=== PATIENT | female | born 1980 | race Caucasian/White ===

== ENCOUNTER 2021-05-01 12:10 | Emergency (ER) | payer MEDICAID ==
[~2021-05-01] VITALS: Ht 165.1 cm; Wt 82.6 kg
[2021-05-01 12:18] VITALS: BP 135/79
[2021-05-01] MEDS ORDERED: KETOROLAC 30 MG/ML VIAL IM ONE (13:00)
[2021-05-01 13:34] LABS: BASOPHILS # (AUTO) 0.1 K/uL (0.00-0.22); BASOPHILS % (AUTO) 0.8 % (0.0-2.0); EOSINOPHILS # (AUTO) 0.1 K/uL (0-0.4); EOSINOPHILS % (AUTO) 1.6 % (0.0-4.0); HEMATOCRIT 36.2 % (36-48); HEMOGLOBIN 12.5 g/dL (12.0-16.0); LYMPHOCYTES # (AUTO) 2.4 K/uL (2.5-16.5); LYMPHOCYTES % (AUTO) 30.2 % (20.5-51.1); MEAN CORPUSCULAR HEMOGLOBIN 32 pg (27-31); MEAN CORPUSCULAR HGB CONC 34 g/dL (33-37); MEAN CORPUSCULAR VOLUME 91.5 fL (80-94); MONOCYTES # (AUTO) 0.6 K/uL (0.8-1.0); MONOCYTES % (AUTO) 7.6 % (1.7-9.3); NEUTROPHILS # (AUTO) 4.7 K/uL (1.8-7.7); NEUTROPHILS % (AUTO) 59.8 % (42.2-75.2); PLATELET COUNT (AUTO) 184 K/uL (140-450); RED BLOOD CELL COUNT(AUTO) 3.96 MIL/uL (4.20-5.40); RED CELL DISTRIBUTION WIDTH 13.1 % (11.6-13.7); WHITE BLOOD COUNT (AUTO) 7.8 K/uL (4.8-10.8)
[2021-05-01 13:34] LABS: APPEARANCE,URINE CLEAR (CLEAR); BILIRUBIN,URINE NEGATIVE (NEGATIVE); BLOOD, URINE 3+ (NEGATIVE); COLOR,URINE YELLOW (YELLOW); LEUKOCYTE ESTERASE ,URINE NEGATIVE (NEGATIVE); NITRITE, URINE NEGATIVE (NEGATIVE); PH,URINE 5.5 (5.0-9.0); UGLUCOSE NEGATIVE (NEGATIVE)
[2021-05-01 13:43] LABS: CARBON DIOXIDE 25.7 mmol/L (21-32); CREATININE 0.7 mg/dL (0.6-1.3); POTASSIUM 3.7 mmol/L (3.5-5.1)
[2021-05-01 13:49] LABS: ALBUMIN 3.7 g/dL (3.4-5.0); TOTAL BILIRUBIN 0.3 mg/dL (0.0-1.0)
[2021-05-01 13:53] LABS: RBC,URINE 11-20 (MOD) /HPF (0-5); WBC,URINE 0-5 /HPF (0-5)
[2021-05-01] MEDS ORDERED: ONDA-24 PO (14:22)
[2021-05-01] MEDS ORDERED: ACET-8386 PO (14:22)
[2021-05-01 15:02] VITALS: BP 117/68
== END 2021-05-01 15:00 | disposition home or self-care (01) ==
LOC: MED 12:10
DX: R19.7 Diarrhea, unspecified (principal); E86.0 Dehydration; R10.32 Left lower quadrant pain
CPT/HCPCS: 36415; 74176; 80053; 81001; 81025; 83690; 85025; 96372; 99284; J1885

== ENCOUNTER 2022-07-13 15:55 | Emergency (ER) | payer MEDICAID ==
[~2022-07-13] VITALS: Ht 162.6 cm; Wt 81.6 kg
[~2022-07-13 15:55] MED LIST: ACET-8386 PO; ONDA-188 PO
--- NOTE | 2022-07-13 16:25 | NUR ---
PT AMBULATED TO BED 02.
[2022-07-13 16:30] VITALS: BP 142/86
--- NOTE | 2022-07-13 16:52 | NUR ---
C/O LEFT SIDED ABDOMINAL PAIN THAT RAD TO BACK WITH D/N X 4 DAYS. DENIES VOMITING & PAIN DURING URINATION. TEMP 98.6 PMH: DENIES
[2022-07-13] MEDS ORDERED: ONDANSETRON 4 MG/2 ML VIAL IVP ONE (18:40)
[2022-07-13] MEDS ORDERED: NACL 0.9% 500 ML IV ONE (18:40)
--- NOTE | 2022-07-13 19:11 | NUR ---
Pt report given to Veronica. Transfer of care at this time.
[2022-07-13 19:21] LABS: BASOPHILS % (AUTO) 0.3 % (0.0-2.0); EOSINOPHILS # (AUTO) 0.1 K/uL (0-0.4); HEMATOCRIT 38.1 % (36-48); HEMOGLOBIN 12.9 g/dL (12.0-16.0); LYMPHOCYTES # (AUTO) 2.2 K/uL (2.5-16.5); LYMPHOCYTES % (AUTO) 35.8 % (20.5-51.1); MEAN CORPUSCULAR HEMOGLOBIN 31 pg (27-31); MEAN CORPUSCULAR HGB CONC 34 g/dL (33-37); MEAN CORPUSCULAR VOLUME 90.5 fL (80-94); MONOCYTES # (AUTO) 0.8 K/uL (0.8-1.0); MONOCYTES % (AUTO) 13.4 % (1.7-9.3); NEUTROPHILS # (AUTO) 3.1 K/uL (1.8-7.7); NEUTROPHILS % (AUTO) 49.5 % (42.2-75.2); PLATELET COUNT (AUTO) 234 K/uL (140-450); RED BLOOD CELL COUNT(AUTO) 4.21 MIL/uL (4.20-5.40); RED CELL DISTRIBUTION WIDTH 13.5 % (11.6-13.7); WHITE BLOOD COUNT (AUTO) 6.2 K/uL (4.8-10.8)
[2022-07-13 19:43] LABS: ALBUMIN 3.6 g/dL (3.4-5.0); ANION GAP 13.3 (8-16); CREATININE 0.8 mg/dL (0.6-1.3); POTASSIUM 3.3 mmol/L (3.5-5.1); TOTAL BILIRUBIN 0.6 mg/dL (0.0-1.0)
--- NOTE | 2022-07-13 19:51 | NUR ---
STOOL COLLECTED AND HANDED TO CHANDLER FROM LAB. C-DIFFF FORM FILLED OUT ENTIRELY AND GIVEN TO FRANCESCA FROM LAB.
[2022-07-13] MEDS ORDERED: ONDA-188 SL (19:53)
[2022-07-13] MEDS ORDERED: DIPHENOXYLATE /ATROPINE 2.5 MG TAB PO ONE (19:55)
[2022-07-13 20:36] VITALS: BP 101/52
[2022-07-14] MEDS ORDERED: ACET-8386 PO (11:52)
--- NOTE | 2022-07-18 17:00 | NUR ---
CALLED PT AT [phone] REGARDING STOOL CULTURE RESULTS. V-MAIL LEFT.
== END 2022-07-13 20:36 | disposition home or self-care (01) ==
LOC: MED 15:55
DX: R11.2 Nausea with vomiting, unspecified (principal); R19.7 Diarrhea, unspecified; R10.9 Unspecified abdominal pain; Z98.890 Other specified postprocedural states; Z79.899 Other long term (current) drug therapy
CPT/HCPCS: 36415; 80053; 84702; 85025; 87045; 87070; 87427; 89055; 96361; 96374; 99285; J2405; J7030; 81002

== ENCOUNTER 2022-07-14 08:31 | Emergency (ER) | payer MEDICAID ==
[~2022-07-14] VITALS: Ht 153.7 cm; Wt 81.2 kg
[~2022-07-14 08:31] MED LIST changes: +ONDA-188 SL
[2022-07-14 08:34] VITALS: BP 104/72
--- NOTE | 2022-07-14 08:39 | NUR ---
PT AMBULATED TO ER BED 3
--- NOTE | 2022-07-14 08:42 | NUR ---
42 y/o female bib self from home, pt presents to ed with c/o epigastric pain, n/v/d for 4 days. denies fever, chills, cough, sore throat, sob or anyone sick in household with same s/s. denies hematuria, dysuria or urinary retention. a&ox4, ambulates with steady gait. abd sounds x4, round/soft/tender/guarding. lung sounds clar, heart sounds even and regular. pmh: denies nka med: denies
--- NOTE | 2022-07-14 08:47 | NUR ---
ermd at bedside for evaluation
[2022-07-14] MEDS ORDERED: DICYCLOMINE 20 MG/2 ML VIAL IM ONE (08:50)
[2022-07-14] MEDS ORDERED: ONDANSETRON 4 MG ODT PO ONE (08:50)
[2022-07-14] MEDS ORDERED: NACL 0.9% 1,000 ML IV SCH (09:45)
[2022-07-14] MEDS ORDERED: ONDANSETRON 4 MG/2 ML VIAL IVP ONE (09:45)
[2022-07-14] MEDS ORDERED: KETOROLAC 30 MG/ML VIAL IVP ONE (09:45)
--- NOTE | 2022-07-14 09:58 | NUR ---
Ultrasound at bedside.
--- NOTE | 2022-07-14 10:07 | NUR ---
kaylin pickett picked up urine and blood at bedside at this time
[2022-07-14 10:34] LABS: ALBUMIN 3.3 g/dL (3.4-5.0); CARBON DIOXIDE 25.2 mmol/L (21-32); CREATININE 0.8 mg/dL (0.6-1.3); POTASSIUM 3.2 mmol/L (3.5-5.1); TOTAL BILIRUBIN 0.8 mg/dL (0.0-1.0)
[2022-07-14 10:55] LABS: APPEARANCE,URINE CLEAR (CLEAR); BILIRUBIN,URINE NEGATIVE (NEGATIVE); BLOOD, URINE TRACE-L (NEGATIVE); COLOR,URINE YELLOW (YELLOW); LEUKOCYTE ESTERASE ,URINE TRACE (NEGATIVE); NITRITE, URINE NEGATIVE (NEGATIVE); UGLUCOSE NEGATIVE (NEGATIVE)
[2022-07-14 10:55] LABS: BASOPHILS % (AUTO) 0.2 % (0.0-2.0); EOSINOPHILS % (AUTO) 0.1 % (0.0-4.0); HEMATOCRIT 36.3 % (36-48); HEMOGLOBIN 12.2 g/dL (12.0-16.0); LYMPHOCYTES # (AUTO) 1.3 K/uL (2.5-16.5); LYMPHOCYTES % (AUTO) 10.7 % (20.5-51.1); MEAN CORPUSCULAR HEMOGLOBIN 30 pg (27-31); MEAN CORPUSCULAR HGB CONC 34 g/dL (33-37); MEAN CORPUSCULAR VOLUME 90.2 fL (80-94); MONOCYTES # (AUTO) 1.4 K/uL (0.8-1.0); MONOCYTES % (AUTO) 11.3 % (1.7-9.3); NEUTROPHILS # (AUTO) 9.6 K/uL (1.8-7.7); NEUTROPHILS % (AUTO) 77.7 % (42.2-75.2); PLATELET COUNT (AUTO) 225 K/uL (140-450); RED BLOOD CELL COUNT(AUTO) 4.02 MIL/uL (4.20-5.40); RED CELL DISTRIBUTION WIDTH 13.1 % (11.6-13.7); WHITE BLOOD COUNT (AUTO) 12.4 K/uL (4.8-10.8)
[2022-07-14] MEDS ORDERED: POTASSIUM CHLORIDE 10 MEQ TABER PO ONE (11:30)
[2022-07-14] MEDS ORDERED: MAGNESIUM OXIDE 400 MG TAB PO ONE (11:30)
--- NOTE | 2022-07-14 11:32 | NUR ---
Patient appears to be resting comfortably in bed. Vital Signs within normal limits. Respirations even and unlabored.
[2022-07-14] MEDS ORDERED: ACET-8386 PO (11:52)
[2022-07-14 12:04] VITALS: BP 100/51
--- NOTE | 2022-07-14 12:04 | NUR ---
Patient discharged with v/s stable. Written and verbal after care instructions given and explained. Patient alert, oriented and verbalized understanding of instructions. Ambulatory with steady gait. All questions addressed prior to discharge. ID band removed. Patient advised to follow up with PMD. Rx of hydrocodone (sent) given. Patient educated on indication of medication including possible reaction and side effects. Opportunity to ask questions provided and answered. work note given, copy of labs and us given.
== END 2022-07-14 12:04 | disposition home or self-care (01) ==
LOC: MED 08:31
DX: K80.20 Calculus of gallbladder without cholecystitis without obstruction (principal); R11.2 Nausea with vomiting, unspecified; Z79.899 Other long term (current) drug therapy; Z98.890 Other specified postprocedural states
CPT/HCPCS: 36415; 76705; 80053; 81003; 81025; 83605; 83690; 85025; 87040; 96361; 96372; 96374; 96375; 99284; J0500; J1885; J2405; J7030; Q0092; Q0162